=== PATIENT | male | born 1965 | race Caucasian/White ===

== ENCOUNTER 2021-01-01 18:26 | Emergency (ER) | payer OTHER ==
[~2021-01-01] VITALS: Ht 170.2 cm; Wt 118.0 kg
[2021-01-01] MEDS ORDERED: SODIUM CHLORIDE 0.9% 1,000 ML IV ONE (19:00)
[2021-01-01 19:18] LABS: CHLORIDE 108 mEq/L (98-107)
[2021-01-01 20:41] VITALS: BP 132/81
== END 2021-01-01 20:43 | disposition home or self-care (01) ==
LOC: ER 18:26
DX: E11.649 Type 2 diabetes mellitus with hypoglycemia without coma (principal); E78.00 Pure hypercholesterolemia, unspecified; Z79.4 Long term (current) use of insulin
CPT/HCPCS: 36415; 80048; 82962; 96360; 99283; J7030